=== PATIENT | female | born 2000 | race Caucasian/White ===

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

== ENCOUNTER 2020-08-11 13:44 | Emergency (ER) | payer OTHER, BC, SELFPAY ==
[2020-08-11 14:17] VITALS: BP 131/74; PULSE 70; RESP 16; TEMP 36.6; O2SAT 100
--- NOTE | 2020-08-11 14:43 | ED.FEMALEGU ---
HPI - Female Genitourinary General Chief complaint: Urogenital-Female Stated complaint: uti symptoms Time Seen by Provider: 08/11/20 14:10 Source: patient and RN notes reviewed Limitations: no limitations History of Present Illness HPI Narrative: The patient, previously mostly healthy, presents with urinary symptoms. Patient states she has a shorter 1 day history of urinary frequency, urgency and mild dysuria-like prior UTI. No fever, abdominal pain, vomiting/diarrhea, hematuria, vaginal discharge, rash Related Data Home Medications Medication Instructions Recorded Confirmed multivitamin 1 tablet PO DAILY 06/20/19 06/20/19 dextroamphetamine-amphetamine 08/11/20 levothyroxine 08/11/20 norgestimate-ethinyl estradiol tablet 08/11/20 [Estarylla] sertraline 200 mg PO DAILY 08/11/20 08/11/20 Allergies Allergy/AdvReac Type Severity Reaction Status Date / Time No Known Allergies Allergy Verified 08/11/20 14:24 Review of Systems Review of Systems: Narrative: General/Constitutional: No weight loss,fever Eyes: N0: Redness,discharge Ears/Nose/Throat: No: Epistaxis,ear discharge Respiratory: Denies: Hemoptysis Gastrointestinal: No Vomiting, Bleeding-rectal Skin: No Lumps, eruption Neurologic: No Focal Weakness,Sz Hematologic: Denies: Petechiae/Purpura Psychiatric: No: Suicida ideationl All Other Systems: Reviewed and Negative PMFSH Comments At time of signature, agree with nursing past medical, surgical, social and family history. There is no relevant family history pertinent to the presenting complaint Exam Narrative: Exam Narrative: General Appearance: Well appearing, Conjunctiva clear Mouth/Throat: Normal appearing, Normal lips Neck: Supple Respiratory: Airway patent, No respiratory distress Cardiovascular: RRR Abdomen: Soft, Non-tender, no CVAT Musculoskeletal: Full ROM Skin: Warm, Dry Neurological: A&O x3, Normal affect Course Vital Signs Vital signs: Vital Signs Temperature 97.9 F 08/11/20 14:17 Pulse Rate 70 08/11/20 14:17 Respiratory Rate 16 08/11/20 14:17 Blood Pressure 131/74 08/11/20 14:17 Pulse Oximetry 100 08/11/20 14:17 Temperature 97.9 F 08/11/20 14:17 Pulse Rate 70 08/11/20 14:17 Respiratory Rate 16 08/11/20 14:17 Blood Pressure 131/74 08/11/20 14:17 Pulse Oximetry 100 08/11/20 14:17 MDM - Female Genitourinary Lab Data Labs: Lab Results 08/11/20 Range/Units 13:50 C.trachomatis RNA (TMA) Pending N.gonorrhoeae RNA (TMA) P[place] [facility] [place] Negative Reference Range: Negative Urine Glucose Negative Reference Range: Negative Urine Bilirubin Negative Reference Range: Negative Urine Ketone Negative Reference Range: Negative Urine Specific [place] 1.030 Reference Range:1.001-1.035 Urine Blood 2+ Reference Range: Negative * * Urine pH 6.0 Reference Range: 5.0-9.0 Urine Protein 2+ Reference Range: Negative Urine Urobilinogen 0.2 Reference Range: 0.2-1.0 Urine Nitrate Negative Reference Range: Negative Urine Leukocyte 1+ Reference Range: Negative Urine Color Yellow
== END 2020-08-11 14:55 | disposition home or self-care (01) ==
PROVIDERS: Emergency Provider Emergency Medicine; PCP Pediatrics
DX: N30.00 Acute cystitis without hematuria (principal); F41.9 Anxiety disorder, unspecified; F32.9 Major depressive disorder, single episode, unspecified; F42.9 Obsessive-compulsive disorder, unspecified
CPT/HCPCS: 81003; 81025; 87491; 87591; 99214; G0463

== ENCOUNTER 2021-11-24 11:03 | Emergency (ER) | payer OTHER, SELFPAY ==
--- NOTE | ~2021-11-24 | XR_ITS ---
EXAMINATION: XR foot RT min 3V DATE: 11/24/2021 11:24 INDICATION: Right foot injury. TECHNIQUE: 4 views of right foot were obtained. COMPARISON: None. FINDINGS: Bone alignment is normal. No fracture. Joint spaces are well maintained. IMPRESSION: 1. Normal right foot. Reviewed, dictated and finalized at location A. IMPRESSION: 1. Normal right foot.
--- NOTE | ~2021-11-24 | XR_ITS ---
EXAMINATION: XR ankle RT min 3V DATE: 11/24/2021 11:24 INDICATION: Right ankle injury. TECHNIQUE: 4 views of right ankle were obtained. COMPARISON: None. FINDINGS: Bone alignment is normal. No fracture. Joint spaces are well maintained. IMPRESSION: 1. No fracture. Reviewed, dictated and finalized at location A. IMPRESSION: 1. No fracture.
[2021-11-24 11:13] VITALS: BP 105/86; PULSE 96; RESP 20; TEMP 36.7; O2SAT 100
--- NOTE | 2021-11-24 11:26 | ED.LOWEXIN ---
HPI - Extremity Injury (Lower) General Chief Complaint: Extremity Injury, Lower Stated Complaint: right ankle injury Time Seen by Provider: 11/24/21 11:29 Source: patient and RN notes reviewed Mode of arrival: ambulatory Limitations: no limitations History of Present Illness HPI Narrative: 21-year-old female presents with concern for right ankle and foot pain. She reports last night she kicked a tree with the medial portion of her foot causing her ankle to bend awkwardly. She reports pain is at the lateral ankle. She reports worsening pain with weightbearing. She reports she has used ice and elevation. She denies open skin, redness, warmth, swelling. MD complaint: ankle injury Related Data Home Medications Medication Instructions Recorded Confirmed multivitamin 1 tablet PO DAILY 06/20/19 06/20/19 dextroamphetamine-amphetamine 15 08/11/20 mg tablet levothyroxine 50 mcg tablet 08/11/20 norgestimate 0.25 mg-ethinyl tablet 08/11/20 estradiol 35 mcg tablet (Estarylla) sertraline 100 mg tablet 200 mg PO DAILY 08/11/20 08/11/20 Allergies Allergy/AdvReac Type Severity Reaction Status Date / Time No Known Allergies Allergy Verified 08/11/20 14:24 Review of Systems Review of Systems: CONSTITUTIONAL: Denies malaise, chills, sweats, or fever. SKIN: Denies rash or itching, open skin, laceration, abrasion, redness, warmth, swelling. MUSCULOSKELETAL: Reports right ankle and foot pain NEUROLOGIC: Denies numbness, weakness All systems reviewed & are unremarkable except as noted in HPI and below PMFSH Comments At time of signature, agree with nursing past medical, surgical, social and family history. There is no relevant family history pertinent to the presenting complaint Exam Narrative: GENERAL: Well-appearing, well-nourished, and in no acute distress. HEAD: Normocephalic, atraumatic. EYES: PERRLA, conjunctivae clear NECK: Supple. CHEST: Speaks in full sentences. No respiratory distress. HEART: Regular rate and rhythm. Normal and equal peripheral pulses. EXTREMITIES: Right ankle, foot, digits have normal strength and sensation, limited range of motion likely related to pain. No edema or ecchymosis. 5/5 strength with ankle and digit flexion and extension. Normal sensation with sensitivity to light touch and pain. Lateral foot tenderness. No open wounds, no skin tenting, no devitalized tissue or atrophy, no trophic changes, no obvious deformity, alignment normal, nearby joints and structures intact. Distal pulses palpable and equal bilaterally, skin warm, dry, pink. Capillary refill less than 3 seconds. SKIN: Warm, dry, no rash. NEURO: Alert and oriented x3. PSYCH: Normal mood and affect Course Course Emergency Course: Patient is aware of diagnosis, understands and agrees to treatment plan. Anticipatory guidance given. Patient agrees to follow-up as directed and is aware of reasons to seek care at the emergency department. Portions of this record may have been created with voice recognition software Level of Care: Express Care Visit Vital Signs Vital signs: Vital Signs Temperature 98.1 F 11/24/21 11:13 Pulse Rate 96 11/24/21 11:13 Respiratory Rate 20 11/24/21 11:13 Blood Pressure 105/86 11/24/21 11:13 Pulse Oximetry 100 11/24/21 11:13 Temperature 98.1 F 11/24/21 11:13 Pulse Rate 96 11/24/21 11:13 Respiratory Rate 20 11/24/21 11:13 Blood Pressure 105/86 11/24/21 11:13 Pulse Oximetry 100 11/24/21 11:13 Reviewed. MDM - Extremity Injury (Lower) MDM Narrative Medical decision making narrative: Patients injury and pain is consistent with musculoskeletal etiology. No signs of neurological or vascular compromise on exam. Compartments and tissues are soft without signs of compartment syndrome. Pain is felt appropriate for further evaluation on an outpatient basis. Imaging Data My impression: Images reviewed, interpreted by radiologist, agree, see report. Radiologist's
== END 2021-11-24 11:46 | disposition home or self-care (01) ==
PROVIDERS: Emergency Provider Nurse Practitioner; PCP Internal Medicine
DX: S93.401A Sprain of unspecified ligament of right ankle, initial encounter (principal); S96.911A Strain of unspecified muscle and tendon at ankle and foot level, right foot, initial encounter; W22.09XA Striking against other stationary object, initial encounter; F41.9 Anxiety disorder, unspecified; F32.A Depression, unspecified; F42.9 Obsessive-compulsive disorder, unspecified
CPT/HCPCS: 73610; 73630; 99213; G0463

== ENCOUNTER 2023-06-17 18:07 | Emergency (ER) | payer OTHER, SELFPAY ==
[2023-06-17 18:17] VITALS: BP 102/78; PULSE 72; RESP 18; TEMP 36.7; O2SAT 100
--- NOTE | 2023-06-17 18:22 | ED.GENADULT ---
HPI - General Adult General Stated complaint: Head Injury Source: patient, RN notes reviewed and old records reviewed Mode of arrival: ambulatory Limitations: no limitations History of Present Illness HPI narrative: 23-year-old female presents to [facility] with complaints of pain on top of head after shelf fell at work and hit her and head. Patient denies LOC. Patient denies laceration. Patient denies dizziness, headache, vertigo visual disturbances. Related Data Home Medications Medication Instructions Recorded Confirmed multivitamin 1 tablet PO DAILY 06/20/19 06/20/19 dextroamphetamine-amphetamine 15 08/11/20 mg tablet levothyroxine 50 mcg tablet 08/11/20 norgestimate 0.25 mg-ethinyl tablet 08/11/20 estradiol 35 mcg tablet (Estarylla) sertraline 100 mg tablet 200 mg PO DAILY 08/11/20 08/11/20 Allergies Allergy/AdvReac Type Severity Reaction Status Date / Time No Known Allergies Allergy Verified 08/11/20 14:24 Review of Systems Constitutional: Constitutional: Reports no additional constitutional complaints, Denies body ache(s), Denies chills, Denies fatigue, Denies fever(s) and Denies headache(s) Eyes: Eyes: Reports no additional eye complaints, Denies blurry vision, Denies change in vision and Denies diplopia ENT: Reports system reviewed and no additional complaints, except as documented, Denies vertigo, Denies dizziness, Denies ear discharge, Denies otalgia, Denies facial pain, Denies headache(s), Denies nasal congestion, Denies nasal discharge, Denies sinus pain, Denies sinus pressure and Denies sore throat Cardiovascular: Cardiovascular: Reports no additional cardiovascular complaints, Denies chest pain, Denies chest pain at rest, Denies rapid heart rate and Denies dyspnea Respiratory: Respiratory: Reports no additional respiratory complaints, Denies chest congestion, Denies cough, Denies pain on inspiration, Denies pain with cough and Denies dyspnea Gastrointestinal: Gastrointestinal: Denies abdominal pain, Denies diarrhea, Denies nausea and Denies vomiting Integumentary/Breasts: Skin/Breast: Denies rash Comments: Small abrasion to upper scalp Neurologic: Reports system reviewed and no additional complaints, except as documented, Denies Neuro-related abnormal movements, Denies Abnormal speech present, Denies abnormal gait, Denies confusion, Denies vertigo, Denies dizziness, Denies syncope, Denies headache(s), Denies lack of coordination, Denies focal weakness, Denies seizure-like activity and Denies weakness Endocrine: Endocrine: Denies fatigue PMFSH Comments At the time of my signature, I reviewed and agree with the nursing past medical, surgical, social, and family history. There is no relevant family history pertinent to the patient complaint. Exam Const: General: cooperative, healthy appearing, no acute distress and well nourished Nutritional Appearance: well nourished Orientation/consciousness: patient oriented x3 Limitations: no limitations HENMT: Head: normal to inspection and normocephalic Ears: external ears normal and mastoids normal Face/Nose/Sinus: normal facial exam Face and sinus: normal facial exam Mouth: Yes Normal oral and palatal mucosa present, Yes oropharynx normal and Yes moist mucous membranes Throat: tonsils normal, uvula midline and no uvular edema Eyes: General: appearance normal, both eyes and all related structures Alignment and Position: alignment normal Periorbital: periorbital findings normal Sclera: sclerae normal Pupils: Equal, round and reactive pupils present EOM: EOMs intact bilaterally Direct Ophthalmoscopy: no photophobia and no papilledema Neck: Neck: normal visual inspection and full ROM Resp: Effort & Inspection: normal respiratory effort, able to speak in complete sentences, no audible wheezes, no cough, no respiratory distress and no retractions Skin: General skin exam: normal color and no rashes or lesions noted Neuro: General: pat
== END 2023-06-17 18:29 | disposition home or self-care (01) ==
PROVIDERS: Emergency Provider Registered Nurse; PCP Internal Medicine
DX: S09.90XA Unspecified injury of head, initial encounter (principal); W20.8XXA Other cause of strike by thrown, projected or falling object, initial encounter; Y99.0 Civilian activity done for income or pay; F41.9 Anxiety disorder, unspecified; F32.A Depression, unspecified; F42.9 Obsessive-compulsive disorder, unspecified
CPT/HCPCS: 99213; G0463